=== PATIENT | female | born 1980 | race Caucasian/White ===

== ENCOUNTER → 2021-11-08 | Outpatient (CLI) | payer BC, MEDICAID, SELFPAY ==
[2021-11-07 14:01] LABS: Protein, Urine (Random) < 6.0 mg/dL (<11.9)
== END | disposition home or self-care (01) ==
LOC: LABSPEC 10:13
PROVIDERS: PCP Internal Medicine; Visit Provider Obstetrics & Gynecology
DX: O24.919 Unspecified diabetes mellitus in pregnancy, unspecified trimester (principal); Z3A.00 Weeks of gestation of pregnancy not specified
CPT/HCPCS: 82570; 84156

== ENCOUNTER → 2021-11-25 | Outpatient (CLI) | payer BC, MEDICAID, SELFPAY ==
[2021-11-25 14:04] LABS: NATERA MAILED SPECIMEN
[2021-11-25 15:21] LABS: Absolute Lymphocyte Count 2.61 X10^3/uL (0.83-4.51); Absolute Neutrophil Count 6.3 X10^3/uL (2.0-7.7); Basophil# 0.03 X10^3/uL; Basophil% 0.3 % (0-1); Hematocrit 40.4 % (37-47); Hemoglobin 13.5 g/dL (12.0-15.0); Lymphocyte # 2.61 X10^3/ul (0.83-4.51); Lymphocyte % 26.1 % (19-41); Mean Corp Hgb Conc 33.4 g/dL (32-36); Mean Corpuscular Hgb 30.3 pg (27.0-32.0); Mean Corpuscular Volume 90.8 fL (81-99); Mean Platelet Vol. 11.4 fl (6.2-12.0); Monocyte# 0.59 X10^3/uL; Monocyte% 5.9 % (0-10); NRBC Flagged by Analyzer 0 % (0-5); Neutrophil # 6.34 X10^3/uL (2.7-7.7); Neutrophil % 63.3 % (47-70); Platelet Count 226 K/mm3 (150-450); RBC Distribution Width CV 12.4 % (11.6-14.6); Red Blood Count 4.45 M/mm3 (4.2-5.4)
[2021-11-25 15:56] LABS: ALB/GLOB Ratio 0.8 RATIO (0.9-2.4); AST(SGOT) 12 U/L (15-37); Alanine Aminotransfer ALT/SGPT 21 U/L (13-56); Albumin, Serum 3.1 g/dL (3.2-5.0); Alkaline Phosphatase 38 U/L (45-117); Anion Gap 8 (5-15); BUN 15 mg/dL (7-18); BUN/Creat Ratio 24.8 RATIO (10-20); Calcium,Total 9.2 mg/dL (8.5-10.1); Chloride 106 mmol/L (98-107); Cholesterol 175 mg/dL (200); EST Glomerular Filtration Rate 115 mL/min (>60); Est Glom Filt Rate - Afr Amer 140 mL/min (>60); Globulin 3.9 g/dL (2.2-4.2); Glucose 80 mg/dL (74-106); High Density Lipoprotein 52 mg/dL; Potassium 3.6 mmol/L (3.5-5.1); Sodium Level 137 mmol/L (136-145); Triglycerides 114 mg/dL; Very Low Density Lipoprotein 23 mg/dL (5-40)
== END | disposition home or self-care (01) ==
PROVIDERS: PCP Internal Medicine; Referring Provider Obstetrics & Gynecology; Visit Provider Obstetrics & Gynecology
DX: Z34.81 Encounter for supervision of other normal pregnancy, first trimester (principal); Z31.430 Encounter of female for testing for genetic disease carrier status for procreative management
CPT/HCPCS: 36415; 80053; 80061; 83036; 85025

== ENCOUNTER → 2021-12-06 | Outpatient (CLI) | payer BC, MEDICAID, SELFPAY ==
[2021-12-06 11:22] LABS: Protein, Urine (Random) 17.7 mg/dL (<11.9); Protein:Creat Ratio 103 mg/g CRE (0-200)
[2021-12-06 11:55] LABS: T4 Free Direct 1.05 ng/dL (0.76-1.46); Thyroid Stim Hormone (TSH) 1.25 uIU/mL (0.358-3.74)
== END | disposition home or self-care (01) ==
PROVIDERS: PCP Internal Medicine; Visit Provider Obstetrics & Gynecology
DX: O24.319 Unspecified pre-existing diabetes mellitus in pregnancy, unspecified trimester (principal); O99.210 Obesity complicating pregnancy, unspecified trimester; Z13.29 Encounter for screening for other suspected endocrine disorder; Z3A.00 Weeks of gestation of pregnancy not specified
CPT/HCPCS: 36415; 82570; 84156; 84439; 84443

== ENCOUNTER 2022-01-02 11:42 | Outpatient (CLI) | payer BC, MEDICAID, SELFPAY ==
--- NOTE | 2022-01-02 11:45 | EKG12_ITS ---
Test Reason : Blood Pressure : / mmHG Vent. Rate : 063 BPM Atrial Rate : 063 BPM P-R Int : 124 ms QRS Dur : 070 ms QT Int : 398 ms P-R-T Axes : 039 015 006 degrees QTc Int : 407 ms Normal sinus rhythm Low voltage QRS Borderline ECG Confirmed by MARISA SKELTON, SOFI ([id number]), editor managing director NINO LACEY ([id number]) on 01/06/2022 11:17:32 AM Referred By: Sheryl Calvillo Confirmed By:CHEMO CUNNINGHAM MD
[2022-01-02 15:20] LABS: Hemoglobin A1c 4.7 % (3.8-5.6)
== END 2022-01-02 23:59 | disposition home or self-care (01) ==
PROVIDERS: PCP Internal Medicine; Referring Provider Obstetrics & Gynecology; Visit Provider Obstetrics & Gynecology
DX: O24.112 Pre-existing type 2 diabetes mellitus, in pregnancy, second trimester (principal); Z3A.00 Weeks of gestation of pregnancy not specified
CPT/HCPCS: 36415; 82105; 82677; 83036; 84702; 93005

== ENCOUNTER → 2022-01-16 | Outpatient (CLI) | payer BC, MEDICAID, SELFPAY | END | disposition home or self-care (01) | LOC: LABSPEC 16:23 | PROVIDERS: PCP Internal Medicine; Referring Provider Nurse Practitioner Women's Health; Visit Provider Nurse Practitioner Women's Health | DX: R30.9 Painful micturition, unspecified (principal) | CPT/HCPCS: 87077; 87086; 87088 ==

== ENCOUNTER → 2022-03-17 | Outpatient (CLI) | payer BC, MEDICAID, SELFPAY ==
[2022-03-17 14:20] LABS: Absolute Lymphocyte Count 1.33 X10^3/uL (0.83-4.51); Basophil# 0.04 X10^3/uL; Basophil% 0.4 % (0-1); Eosinophil# 0.21 X10^3/uL; Hematocrit 36.5 % (37-47); Hemoglobin 12.6 g/dL (12.0-15.0); Lymphocyte # 1.33 X10^3/ul (0.83-4.51); Lymphocyte % 12.7 % (19-41); Mean Corp Hgb Conc 34.5 g/dL (32-36); Mean Corpuscular Hgb 32.3 pg (27.0-32.0); Mean Corpuscular Volume 93.6 fL (81-99); Mean Platelet Vol. 10.8 fl (6.2-12.0); Monocyte# 0.79 X10^3/uL; Monocyte% 7.6 % (0-10); NRBC Flagged by Analyzer 0 % (0-5); Neutrophil # 7.97 X10^3/uL (2.7-7.7); Neutrophil % 76.2 % (47-70); Platelet Count 205 K/mm3 (150-450); RBC Distribution Width CV 13.2 % (11.6-14.6); RBC Distribution Width SD 44.9 fl (35.1-43.9); White Blood Count 10.5 K/mm3 (4.4-11.0)
== END | disposition home or self-care (01) ==
LOC: PAVLAB 14:07
PROVIDERS: PCP Internal Medicine; Referring Provider Obstetrics & Gynecology; Visit Provider Obstetrics & Gynecology
DX: O09.90 Supervision of high risk pregnancy, unspecified, unspecified trimester (principal)
CPT/HCPCS: 36415; 85025

== ENCOUNTER → 2022-03-27 | Outpatient (CLI) | payer BC, MEDICAID, SELFPAY ==
[2022-03-27 11:13] LABS: Protein, Urine (Random) 10.4 mg/dL (<11.9); Protein:Creat Ratio 211 mg/g CRE (0-200)
== END | disposition home or self-care (01) ==
LOC: LAB 09:48
PROVIDERS: PCP Internal Medicine; Referring Provider Nurse Practitioner; Visit Provider Nurse Practitioner
DX: O24.113 Pre-existing type 2 diabetes mellitus, in pregnancy, third trimester (principal); Z3A.00 Weeks of gestation of pregnancy not specified
CPT/HCPCS: 36415; 82570; 83036; 84156; 84443

== ENCOUNTER → 2022-04-04 | Outpatient (CLI) | payer BC, MEDICAID, SELFPAY | END | disposition home or self-care (01) | LOC: LABSPEC 16:15 | PROVIDERS: PCP Internal Medicine; Visit Provider Obstetrics & Gynecology | DX: Z34.90 Encounter for supervision of normal pregnancy, unspecified, unspecified trimester (principal) | CPT/HCPCS: 87086; 87088 ==

== ENCOUNTER → 2022-04-10 | Outpatient (CLI) | payer MEDICAID, SELFPAY ==
[2022-04-10 10:51] LABS: Absolute Neutrophil Count 7.9 X10^3/uL (2.0-7.7); Basophil# 0.03 X10^3/uL; Basophil% 0.3 % (0-1); Eosinophil# 0.27 X10^3/uL; Eosinophils% 2.5 % (0-5); Hematocrit 37.2 % (37-47); Hemoglobin 12.9 g/dL (12.0-15.0); Lymphocyte % 16.5 % (19-41); Mean Corp Hgb Conc 34.7 g/dL (32-36); Mean Corpuscular Hgb 31.8 pg (27.0-32.0); Mean Corpuscular Volume 91.6 fL (81-99); Mean Platelet Vol. 11.1 fl (6.2-12.0); Monocyte# 0.72 X10^3/uL; Monocyte% 6.6 % (0-10); NRBC Flagged by Analyzer 0 % (0-5); Neutrophil # 7.94 X10^3/uL (2.7-7.7); Neutrophil % 72.6 % (47-70); Platelet Count 193 K/mm3 (150-450); RBC Distribution Width CV 13.1 % (11.6-14.6); Red Blood Count 4.06 M/mm3 (4.2-5.4); White Blood Count 10.9 K/mm3 (4.4-11.0)
[2022-04-10 11:52] LABS: Amphetamine Urine VISTA NEGATIVE (<1000 ng/mL); Barbiturate Urine VISTA NEGATIVE (< 200 ng/mL); Benzodiazepine Urine VISTA NEGATIVE (< 200 ng/mL); Cocaine Urine VISTA NEGATIVE (< 300 ng/mL); Ecstacy Urine VISTA NEGATIVE (< 500 ng/mL); Methadone Urine VISTA NEGATIVE (< 300 ng/mL); PCP Urine VISTA NEGATIVE (< 25 ng/mL); THC Urine VISTA NEGATIVE (< 50 ng/mL); Vista UDS pH Range 6
[2022-04-10 11:59] LABS: HIV - WCH Non-Reactive (Nonreactive); Hepatitis B Surface Antigen Non-Reactive (Nonreactive); Hepatitis C Antibody Non-Reactive (Nonreactive); Rubella IgG Reactive (Nonreactive); Syphilis Antibodies Non-reactive
== END | disposition home or self-care (01) ==
LOC: LAB 10:23
PROVIDERS: Obstetrics & Gynecology; PCP Internal Medicine; Referring Provider Obstetrics & Gynecology; Visit Provider Obstetrics & Gynecology
DX: O23.40 Unspecified infection of urinary tract in pregnancy, unspecified trimester (principal); Z3A.00 Weeks of gestation of pregnancy not specified
CPT/HCPCS: 36415; 80307; 85025; 86703; 86762; 86780; 86803; 86850; 86900; 86901; 87086; 87088; 87186; 87340

== ENCOUNTER 2022-05-19 05:10 | Inpatient (IN) | payer BC, MEDICAID, SELFPAY ==
--- NOTE | 2022-05-17 | FALS_PTH ---
PATIENT: FRANCY LAZO LOC: WP U#:[id number] AGE/SX: 41/F ROOM: WP007 RE05/19/[address]: Dr. Sheryl Calvillo MD : 1980 BED: 1 DIS: 05/22/2022 SPEC #: [id number] RECD: 05/19/22 09:36 STATUS: DINO GUERRERO #: [id number] DEMETRA: 05/17/22 00:[address]: Sheryl Calvillo DEPT: SURGICAL PATHOLOGY RECD BY: Pradeep Parker ENTERED: 05/19/22 10:34 SP TYPE: FALL TUBES OTHR DR: Dr. Asaf Powers MD Tissues: Fallopian tube Procedures: Surgery Specimen Level II HEADER OPERATION: Tubal ligation PRE-OP DIAGNOSIS: Sterilization TISSUE SUBMITTED: Fallopian tubes, suture in right MICROSCOPIC DIAGNOSIS Bilateral fallopian tubes, salpingectomy: Bilateral fallopian tubes, no pathologic diagnosis. SJ:ivelisse 05/20/2022 MICROSCOPIC DESCRIPTION Slides are reviewed. GROSS DESCRIPTION Received in fixative is one container labeled with the patient's name and designated bilateral fallopian tubes, right with stitch. The specimen consists of bilateral fallopian tubes including fimbrial ends. The right fallopian tube measures 6 cm in length and 0.7 cm in diameter and the left fallopian tube measures 5 cm in length and 0.7 cm in diameter. Sections reveal unremarkable cut surfaces. Occupational Health Physiotherapist sections are submitted in two cassettes as follows: 1 ? right fallopian tube, 2 ? left fallopian tube. / ANA:ivelisse 05/19/2022 TC:4 CPT: 00701 x2
--- NOTE | 2022-05-18 14:32 | HP.PCM_ITS ---
History and Physical Intake Vital Signs ? 04/16/2209:51 05/15/2211:09 05/15/2211:10 Height 5 ft 9 in 5 ft 9 in 5 ft 9 in Weight: ? 353 lb ? BMI ? 52.1 ? BP ? 104/82 H ? Intake Visit Reasons:?37 WK OB Chief Complaint: est ob Ocular Care Technologist Required: No Is patient in pain?: No Allergies No Known Allergies Allergy (Verified 04/30/22 13:05) Medications metformin 500 mg tablet 500 mg PO DAILY 10/22/21 [History Confirmed 05/15/22] prenat.vits,carlie,qfl-eosd-erorf 1 tab PO DAILY 10/22/21 [History Confirmed 05/15/22] aspirin 81 mg tablet,delayed release (Adult Aspirin Regimen) 81 mg PO DAILY 01/02/22 [History Confirmed 05/15/22] folic acid 1 mg tablet 1 mg PO DAILY 02/13/22 [History Confirmed 05/15/22] metformin 1,000 mg tablet 1,500 mg PO DAILY 02/27/22 [History Confirmed 05/15/22] Last Menstrual Period: 09/03/21 Zika: Zika virus screening: Negative : No PFSH PFSH Medical History? Encounter to establish care with new doctor Polycystic bilateral ovaries Sleep apnea Type 2 diabetes mellitus Surgical History? [place] teeth extracted Family History? Mother Bipolar 1 disorder ADHD COPD (chronic obstructive pulmonary disease) Diabetes CAD (coronary artery disease) ?? ? CHF Alcoholism Angina at rest DepressionFather Unknown family medical historyAunt Cancer ?? ? cervical ?? ? Endometriosis Ovarian cancerBrother AlcoholismGrandfather Alcoholism Angina at rest Diabetes Heart disease CVA (cerebral vascular accident) Tillman's palsyUncle Tillman's palsy Social History? adopted:? No household members:? significant other current occupational status:? 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 No leisure activities:? exercise Smoking Status:? Never smoker alcohol intake:? never details:? not while substance use type:? does not use diet:? low carbohydrate what type of physical activity do you participate in:? walking frequency:? 1-2 times per week do you feel safe at home:? Yes additional social history:? BF Antonio Narvaez History ? ? ? 2 ? Elective abortions ? Hx Para ? ? ?A 0 ? Spontaneous abortions ? ? ? 1 Hx # Term Pregnancies ? Ectopic pregnancies ? Hx # Pregnancies ? Multiple births ? # of living children ? Past Pregnancies Del. Date Name GA/Weeks Outcome Route Bth Weight Gen Labor Lgth Anesthesia Del Locatn Provider FOB Unknown 2009 SAB ? spontaneous ? Delivery Date:?? Last Updated by: Destiny Dudley STORAGE BATTERY TESTER, STORAGE BATTERY TESTER-C ? ? ? No intervention. Had PPD and took zoloft X 6 mo HPI 37 WK OB Details: FRANCY LAZO is a 41 year old who presents for routine OB visit. OB Visit AMOS Calculator ? Estimated Delivery Date Method Current WG Current Estimate 06/02/22 Ultrasound #1 37w 5d Other Estimates 06/10/22 LMP (Certain) 36w 4d # 2 ? ? Expected Delivery Route/Plan LTCS and BS Labor Preferences- CB/BF classes: recommended labor support person: esme griffin aunt will be there too. labor intervention preferences: [] pain management options preferred: [] cut cord/dad catch: [] : yes PP control planned: [] discussed possible routes of delivery and associated risks: [] special requests: [] Specific Issue/Plans Covid status: vaccinated with booster Flu vaccine: rec'd Tdap vaccine: [] Rhogam: [] LARC form signed: [] Problem list reviewed and updated with the most current plan of care details and appropriate orders placed.? Relevant counseling for the gestational age provided. Continue routine care and follow up unless otherwise noted in visit notes/problem list details Initial Weight:?Not Recorded Date -?-?-?-?-?-?-?-?-?-?-?-?- EGA Weight BP Urine Prot -?-?-?-?-?-?-?-?-?-?-?-?- Glucose FHR FuHt Pres Dilation -?-?-?-?-?-?-?-?-?-?-?-?- Effaced St Visit Note 11/07/21-?-?-?-?-?-?-?-?-?-?-?-?- 10w 3d 287 lb 2 oz 110/78 -?-?-?-?-?-?-?-?-?-?-?-?- ? A 150 -?-?-?-?-?-?-?-?-?-?-?-?- B ? A -?-?-?-?-?-?-?-?-?-?-?-?- B -?-?-?-?-?-?-?-?-?-?--?-?- ? A -?-?-?-?-?-?-?-?-?-?-?-?- B A JV- di/di twins on scan measuring each 10 weeks 3d -?-?-?-?-?-?-?-?-?-?-?-?- B 12/06/21-?-?-?-?-?-?-?-?--?-?-?-?- 14w 4d 289 lb 8 oz 120/80 -?-?-?-?-?-?-?-?-?-?-?-?- ? A 160 -?-?-?-?-?-?-?-?-?-?-?-?- B 157 ? A -?-?-?-?--?-?-?-?-?-?-?-?- B -?-?-?-?-?-?-?-?-?-?-?-?- ? A -?-?-?-?-?-?-?-?-?-?-?-?- B A SM- no vb lof crmaping -?-?-?-?-?-?-?-?-?-?-?-?- B 01/02/22-?-?-?-?-?-?-?-?-?-?-?-?- 18w 3d 303 lb 8 oz 118/80 Negative -?-?-?-?-?-?-?-?-?-?-?-?- Negative A 155 -?-?-?-?-?-?-?-?-?-?-?-?- B 160 ? A -?-?-?-?-?-?-?-?-?-?-?-?- B -?-?-?-?-?-?-?-?-?-?-?-?- ? A -?-?-?-?-?-?-?-?-?-?-?-?- B A JV- afp and hga1c today. anatomy scan done and results pending from [facility]. glucose levels stable. -?-?-?-?-?-?-?-?-?-?-?-?- B 01/16/22-?-?-?-?-?-?-?-?-?-?-?-?- 20w 3d 306 lb 118/70 Negative -?-?-?-?-?-?-?-?-?-?-?-?- Negative A -?-?-?-?-?-?-?-?-?-?-?-?- B ? A -?-?-?-?-?-?-?-?-?-?-?-?- B -?-?-?-?-?-?-?-?-?-?-?-?- ? A -?-?-?-?-?--?-?-?-?-?-?-?- B A MH:no VB, CTX. Work in for dysuria and frequency.? Rx sent. Culture pending. -?-?-?-?-?-?-?-?-?-?-?-?- B 01/30/22-?-?-?-?-?-?-?-?-?-?-?-?- 22w 3d 313 lb 110/60 Negative -?-?-?-?-?-?-?-?-?-?-?-?- Negative A 180 -?-?-?-?-?-?-?-?-?-?-?-?- B 150 ? A -?-?-?-?-?-?-?-?-?-?-?-?- B -?-?-?-?-?-?-?-?-?-?-?-?- ? A -?-?-?-?-?-?-?-?-?-?-?-?- B A JV- growth ultrasound was done today and pending. no complaints. seeing endo for dm and has a glucose monitor implanted in arm. glucose levels are normal. -?-?-?-?-?-?-?-?-?-?-?-?- B 02/27/22-?-?-?-?-?-?-?-?-?-?-?-?- 26w 3d 321 lb 2 oz 107/67 Negative -?-?--?-?-?-?-?-?-?-?-?-?- Negative A 138 -?-?-?-?-?-?-?-?-?-?-?-?- B 137 ? A -?-?-?-?-?-?-?-?-?-?-?-?- B -?-?-?-?-?-?-?-?-?-?-?-?- ? A -?-?-?-?-?-?-?-?-?-?-?-?- B A JV- growth done again today and both babies are 2lbs 1oz. still on metformin, no insulin required. -?-?-?-?-?-?-?-?-?-?-?-?- B 03/17/22-?-?-?-?-?-?-?-?-?-?-?-?- 29w 0d 324 lb 8 oz 117/71 Negative -?-?-?-?-?-?-?-?-?-?-?-?- Negative A 154 -?-?-?-?-?-?-?-?-?-?-?-?- B 168 ? A -?-?-?-?-?-?-?-?-?-?-?-?- B -?-?-?-?-?-?-?-?-?-?-?-?- ? A -?-?-?-?-?-?-?-?-?-?-?-?- B A LC- good FM. no lof,vb,ctx.[employer] growth scan next . then q2 weeks. out of work in 4 days. glucose- increased to 2000mg metformin. endo following closely. -?-?-?-?-?-?-?-?-?-?-?-?- B 04/04/22-?-?-?-?-?-?-?-?-?-?-?-?- 31w 4d 332 lb 8 oz 118/76 -?-?-?-?-?-?-?-?-?-?-?-?- ? A 145 -?-?-?-?-?-?-?-?-?-?-?-?- B 140 ? A -?-?-?-?-?-?-?-?-?--?-?-?- B -?-?-?-?-?-?-?-?-?-?-?-?- ? A -?-?-?-?-?-?-?-?-?-?-?-?- B A SM- no vb lof good fm n oregular ctx carpal tunnel stable.? discussed twice weekly testing patient to see if MFM can do if not will need once a week at hospital.? discussed desires LTCS and BS will schedule, title 19 signed.? reviewed labor precautions SM- rest of NOB labs drawn- no vb lof good fm n oregular ctx carpal tunnel stable.? discussed twice weekly testing patient to see if MFM can do if not will need once a week at hospital.? discussed desires LTCS and BS will schedule, title 19 signed.? reviewed labor precautions -?-?-?-?-?-?-?-?-?-?-?-?- B 04/16/22-?-?-?-?-?-?-?-?-?-?-?-?- 33w 2d 329 lb 8 oz 125/80 Negative -?-?-?-?-?-?-?--?-?-?-?-?- Negative A 144 -?-?-?-?-?-?-?-?-?-?-?-?- B 147 ? A -?-?-?-?-?-?-?-?-?-?-?-?- B -?-?-?-?-?-?-?-?-?-?-?-?- ? A -?-?-?-?-?-?-?-?-?-?-?-?- B A JV- getting twice weekly bpps and seeing us once weekly. glucose levels are normal per Dr. Brand. -?-?-?-?-?-?-?-?-?-?-?-?- B 04/24/22-?-?-?-?-?-?-?-?-?-?-?-?- 34w 3d 340 lb 8 oz 119/75 Negative -?-?-?-?-?-?-?-?-?-?-?-?- Negative A 131 -?-?-?-?-?-?-?-?-?-?-?-?- B 157 ? A Transverse -?-?-?-?-?-?-?-?-?-?-?-?- B Breech -?-?-?-?-?-?-?-?-?-?-?-?- ? A -?-?-?-?-?-?-?-?-?-?-?-?- B A JV- bpp today 01/13 both twins. no discordance. continue twice weekly testing. some contractions that are not painful. section scheduled for 05/19 with LISSY. (thursday) -?-?-?-?-?-?-?-?-?-?-?-?- B 04/30/22-?-?-?-?-?-?-?-?-?-?-?--?- 35w 2d 346 lb 2 oz 115/69 Negative -?-?-?-?-?-?-?-?-?-?-?-?- Negative A 144 -?-?-?-?-?-?-?-?-?-?-?-?- B 165 ? A Cephalic -?-?-?-?-?-?-?-?-?-?-?-?- B Breech 0-?-?-?-?-?-?-?-?-?-?-?-?- ? A -?-?-?-?-?-?-?-?-?-?-?-?- B A JV- bpp saturday 01/13, today incidental bpp of both are 01/13 on bedside scan. pt feeling sharp vaginal pain. -?-?-?-?-?-?-?-?-?-?-?-?- B 05/15/22-?-?-?-?-?-?-?-?-?-?-?-?- 37w 3d 353 lb 104/82 Negative -?-?-?-?-?-?-?-?-?-?-?-?- Negative A 130 -?-?-?-?-?-?-?-?-?-?-?-?- B 135 ? A -?-?-?-?-?-?-?-?-?-?-?-?- B -?-?-?-?-?-?-?-?-?-?-?-?- ? A -?-?-?-?-?-?-?-?-?-?-?-?- B A SM- no vb lof good fm n oregualr ctx cs thursday -?-?-?-?-?-?-?-?-?-?-?-?- B ACOG First Trimester First Trimester: Desire for , Alcohol, Tobacco Cessation, Illicit/Recreational Drug/Substance Use, Intimate Partner Violence, Barriers to care, Unstable Housing, Communication Barriers, Environmental/Work Hazards, Anticipated Course of Care, Toxoplasmosis Precations, Use of Any medications, Sexual activity, Exercise, Dental Care, Sauna/Hot tub use, Seat Belt use, Childbirth classes/Hospital facilities, , Travel, Indications for Ultrasound and Screening for Aneuploidy Second Trimester Second Trimester: Signs and Symptoms of Labor, Selecting a care provider, Reproductive Life Planning & Contreception, Care Planning, Depression/Anxiety and Intimate Partner Violence; Discussed Tobacco Cessation Third Trimester Third Trimester: Pain Management Plans, Labor support person(s), Immediate Larc, Movement Monitoring, Signs and Symptoms of Preeclampsia and Education Diagnostics Diagnostics Diagnostics: ?? ? Blood Type O POSITIVE ?? ? Antibody Screen NEGATIVE ?? ? HIV 1&2 Antibody Non-Reactive? (Nonreactive) ?? ? Rubella IgG Antibody Reactive? (Nonreactive) ?? ? Hgb 12.9 g/dL (12.0-15.0) ?? ? Hct 37.2 % (37-47) Details: HIV: Urine Culture: Sequential Screen: NIPT Screen: ROS Const Reports system reviewed and no additional complaints, except as documented Card Reports system reviewed and no additional complaints, except as documented Resp Reports system reviewed and no additional complaints, except as documented GI Reports system reviewed and no additional complaints, except as documented and Reports nausea Reports system reviewed and no additional complaints, except as documented Musc Reports system reviewed and no additional complaints, except as documented Exam Const General: cooperative, healthy appearing, comfortable and anxious HENWA Head: normal to inspection Nose: external nose normal Face and sinus: normal facial exam Neck Neck: normal visual inspection, full ROM and no lymphadenopathy Thyroid: thyroid normal Chest Chest palpation & inspection: normal inspection of the chest Resp Effort & Inspection: normal respiratory effort GI Inspection: normal to inspection Palpation: soft and other (gravid uterus) Other: Cervical Exam: Extrem General: pedal edema Results POC Urinalysis 2 Dip? (Clinic) Office Urine Glucose Negative ? ? Last Edit by Lindy Espinoza on 05/15/22 11:13 Office Urine Protein Negative ? ? Last Edit by Lindy Espinoza on 05/15/22 11:13 Coding Level of Care Code Off vis,est,level 3 Diagnoses Carpal tunnel syndrome during ? O26.899; G56.00 Twin gestation in third trimester? O30.003 UTI in ? 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 G47.30 ? Z3A.37 ? ? ? Weeks of gestation: 37 weeks Supervision of high risk , antepartum? O09.90 History of depression? Z87.59; Z86.59 Genital herpes? A60.00 Obesity? E66.9 PCOS (polycystic ovarian syndrome)? E28.2 ADHD? F90.9 Assessment and Plan Assessment and Plan (1) Carpal tunnel syndrome during : ?Status:?Acute ?Comment: bilateral wrist braces for comfort (2) Twin gestation in third trimester: ?Status:?Acute ?Comment: di/di deliver 38, desires LTCS and BS, scheduled 05/19 @ 7:20 with SM (3) UTI in : ?Status:?Acute ?Comment: macrobid. Rpt culture done 04/04 (4) Modified White class B pregestational diabetes mellitus: ?Status:?Acute ?Comment: baseline labs, EKG ordered, endocrine managed. metformin., growth US every 4 wks, 2x BPP after 32 wks may get with MFM, if not once weekly with MFM once weekly with WC.02/27 growth nl, 03/27 growth 72% and 54%, 04/14 01/13 BPP (5) Sleep apnea: ?Status:?Acute ?Comment: CPAP (6) : ?Status:?Acute ?Qualifiers: ?Weeks of gestation:?37 weeks? Qualified Code(s):?Z3A.37 - 37 weeks gestation of ?Comment: neg. AFP, carrier neg. , NIPT low risk,1st trimester MFM US nl, follow up to anatomy , echocardiogram in 4 wks (7) Supervision of high risk , antepartum: ?Status:?Acute ?Comment: NOB labs drawn 04/04 AMOS 06/02/23 BF:Bisi) (8) History of depression: ?Status:?Acute ?Comment: after SAB, took zoloft X 6 mo (9) Genital herpes: ?Status:?Acute ?Comment: No outbreaks. Valtrex at 36 wk (10) Obesity: ?Status:?Acute ?Comment: encouraged healthy weight. (11) PCOS (polycystic ovarian syndrome): ?Status:?Acute ?Comment: metformin (12) ADHD: ?Status:?Acute ?Comment: stopped med with pos UPT ? ? ? Orders: Orders POC Urinalysis 2 Dip? (Clinic) 05/15/22 ? ? UPDATE- I have seen the patient and performed any clinically relevant updates to the history and physical exam. Sheryl Calvillo MD
[2022-05-19] VITALS (16 sets, daily range): BP systolic 97–121; BP diastolic 43–68; PULSE 65–72; RESP 16–18; TEMP 36.1–36.9; O2SAT 97–98; BMI 52.4
[2022-05-19] MEDS: Lactated Ringers 1,000 ML 999 ML IV (05:50)
[2022-05-19 06:01] LABS: Bedside Glucose 84 mg/dL (74-106)
[2022-05-19 06:04] LABS: Basophil# 0.04 X10^3/uL; Basophil% 0.4 % (0-1); Eosinophils% 2.7 % (0-5); Hematocrit 36.9 % (37-47); Hemoglobin 12.6 g/dL (12.0-15.0); Lymphocyte % 24.5 % (19-41); Mean Corp Hgb Conc 34.1 g/dL (32-36); Mean Corpuscular Hgb 31.3 pg (27.0-32.0); Mean Corpuscular Volume 91.8 fL (81-99); Mean Platelet Vol. 11.5 fl (6.2-12.0); Monocyte# 0.92 X10^3/uL; Monocyte% 8.3 % (0-10); NRBC Flagged by Analyzer 0 % (0-5); Neutrophil # 6.96 X10^3/uL (2.7-7.7); Neutrophil % 63.1 % (47-70); Platelet Count 217 K/mm3 (150-450); RBC Distribution Width CV 13.2 % (11.6-14.6); Red Blood Count 4.02 M/mm3 (4.2-5.4)
[2022-05-19] MEDS: Acetaminophen 500 MG Tablet 1000 MG PO ×4 (06:11→23:34)
[2022-05-19] MEDS: Sodium Citrate/Citric Acid 30 ML UDC PO (06:37)
[2022-05-19] MEDS: Lactated Ringers 1,000 ML 150 ML IV (06:51)
--- NOTE | 2022-05-19 07:16 | OP.PCM_ITS ---
Assessment & Plan (1) delivery delivered: COMMENT: twins LTCS BS SM Maternal Data Information AMOS Calculator Estimated Delivery Date Method Current WG Current Estimate 06/02/22 Ultrasound #1 38w 1d Other Estimates 06/10/22 LMP (Certain) 37w 0d # 2 Final AMOS Source: LMP Details Operative Information Date of Procedure: 05/19/22 Pre-Operative Diagnosis: twins malpresentation transverse Post-Operative Diagnosis: same Indications for : Desires elective sterilization, Malpresentation and Multiple Gestation Classification: Scheduled Procedure Type: low transverse Type of Anesthesia: Spinal Special Medications: none Antibiotic Given: Ancef 2 grams IV x1 Drain: Guidry to straight drain Estimated Blood Loss: 800 Fluids Replaced: crystalloid Findings Description of Procedure: Spinal anesthesia was placed without difficulty. Guidry catheter was placed. The patient was placed in the dorsal supine position with leftward tilt. Patient was prepped and draped in the normal sterile fashion. Pfannenstiel skin incision was made with the scalpel and carried through to the underlying layer of fascia with the scalpel. Fascia was nicked in the midline and the incision extended laterally. The rectus bellies were dissected off superiorly and inferiorly with out complication both sharply and bluntly. The peritoneum was entered digitally. The incision was stretched and a low transverse uterine incision was made with the scalpel. The infant's head was delivered atraumatically followed by the anterior and posterior shoulders without complication the rest of the infant delivered. second infant converted to vertex from transverse and the membranes ruptured and head delivered followed by anterior and posterior shoulders rest of the infant delivered and cord clamped and cut. The placenta was delivered spontaneously immediately following and was noted to be intact and have a three-vessel cord. The uterus was exteriorized cleared of all clots and debris, and the incision was closed in a single layer closure using #1 Monocryl. The ovaries and fallopian tubes were noted to be within normal limits. Patient had desired sterilization and was counseled preoperatively regarding irreversibility and permanency. Therefore bilateral fallopian tubes were elevated and transected across using a LigaSure device starting proximally to distally without complication the entire fallopian tubes were removed. The uterus was returned to the maternal abdomen and gutters were cleared of all clots and debris. The peritoneum was closed with 3-0 Monocryl in a running fashion. Gloves were changed prior to fascial closure. Fascia was closed with 0 PDS in a running fashion. Subcutaneous tissue was copiously irrigated and the skin was closed with 3-0 Monocryl in a subcuticular fashion. Mepilex dressing was applied without complication. Patient was taken to recovery in stable condition. Amniotic Membrane Rupture Type: Artificial Amniotic Fluid Description: Clear Placenta Disposition: [facility] Cord Vessel Description: 3 Vessels Cord Entanglement: None Delayed Cord Clamping: Yes Complications Risks of Surgery Discussed w/Patient: Bleeding, Infection, Need for Future C- Sections and Injury to surrounding structure(s) including bowel and bladder Vaginal Delivery Complication Complications: None Admit VTE Documentation VTE Present on Admission: No VTE Mechan Device Prophylaxis: SCD's Multi Select Codes Urinary/Genital Urinary/Genital CPT Codes: 35343 C/S+TL (bilateral salpingectomy) and 98603 delivery+PP Care(CHRISTIANO) (Twins)
--- NOTE | 2022-05-19 07:24 | DCINST_ITS ---
Discharge Instructions Diet Discharge Diet: No restrictions Activity Discharge Activity: Return to Normal Activity, May Drive (when pain free and off narcotic pain meds), May Shower and May Take a Tub Bath (in 4 weeks) May resume sexual activity in: 6 weeks Weight Bearing Status: Full weight bearing Lifting Restrictions: under 30 lbs for 6 weeks Dressing / Incision Call your doctor if your incision/area has: Continuous Slow Oozing, Sudden Increased Bleeding, Increased Pain/ Swelling, Increased Redness, Foul Smelling Discharge and - Call your doctor if you observe: Fever of 101 or Higher, Using more than 1 pad per hour, Shortness of breath, Chest pain and Uncontrolled pain Suture Line Care: Avoid Pulling/Pushing and Avoid Pinching/Bending Change Dressing in: 1 week (leave open to air after removed) Remove Dressing in: 1 week (if present) Cleanse incision/area with: Soap & Water and Keep Dressing Clean & Dry Follow Up Care Please Follow Up With: Sheryl Calvillo MD When: Call to make an appointment with your doctor for a postop visit in 2 and 6 weeks. Test Results: Test results from this visit will be discussed in further detail at your follow- up appointment, if applicable. Discharge Plan Admission Admit Date/Time: 05/19/22 05:10 Attending Provider: Sheryl Calvillo Primary Care Provider: Asaf Powers Discharge Orders/Prescriptions Prescriptions: New oxycodone-acetaminophen [Percocet] 5-325 mg tablet 1 tab PO Q6H PRN (Reason: pain) 7 Days Qty: 20 0RF naproxen [naproxen] 500 mg tablet 500 mg PO BID PRN PRN (Reason: Pain) Qty: 30 1RF Continued prenat.vits,carlie,tgg-hbwh-tlsfh Tablet 1 tab PO DAILY metformin 1,000 mg tablet 1,500 mg PO DAILY folic acid 1 mg tablet 1 mg PO DAILY Referrals / Follow Up: Asaf Powers MD [Primary Care Provider] - Disposition Disposition (needs filled in before D/C Order can be placed): Home, Self Care
[2022-05-19] MEDS: 0.9% Saline Lock 10 ML Syringe IV ×2 (09:04→21:57)
[2022-05-19] MEDS: Ketorolac 30 MG/ML Syringe IV ×3 (09:04→21:57)
[2022-05-19 09:37] LABS: Pathology Specimen OB SEE PATHOLOGY REPORT
[2022-05-19] MEDS: Oxytocin 15 Units/NS 250ml 15 UNITS/250 ML IV.SOLN 83 UNITS IV (09:45)
[2022-05-19 10:06] LABS: Bedside Glucose 79 mg/dL (74-106)
[2022-05-19] MEDS: oxyCODONE 5 MG Tablet PO ×3 (10:34→19:43)
[2022-05-19] MEDS: Senna/Docusate Sodium 1 Tablet PO (10:34)
[2022-05-19] MEDS: metFORMIN HCl 500 MG Tablet 1500 MG PO (11:34)
[2022-05-19 14:21] LABS: Bedside Glucose 71 mg/dL (74-106)
--- NOTE | 2022-05-19 18:32 | NURSING ---
This RN took over care at 1200 for this patient and received report from Melissa Cassidy.
[2022-05-19 18:35] LABS: Bedside Glucose 86 mg/dL (74-106)
[2022-05-19] MEDS: Enoxaparin 40 MG/0.4 ML Syringe SC (21:57)
[2022-05-19 22:26] LABS: Bedside Glucose 75 mg/dL (74-106)
[2022-05-20] MEDS: Ketorolac 30 MG/ML Syringe IV (02:57)
[2022-05-20] MEDS: 0.9% Saline Lock 10 ML Syringe IV (02:58)
[2022-05-20 03:31] VITALS: BP 122/65; PULSE 71; RESP 16; TEMP 36.3
[2022-05-20 05:58] LABS: Hematocrit 32.8 % (37-47); Hemoglobin 10.9 g/dL (12.0-15.0); Mean Corp Hgb Conc 33.2 g/dL (32-36); Mean Corpuscular Volume 93.2 fL (81-99); Mean Platelet Vol. 11.5 fl (6.2-12.0); Platelet Count 170 K/mm3 (150-450); RBC Distribution Width CV 13.5 % (11.6-14.6); RBC Distribution Width SD 45.5 fl (35.1-43.9); Red Blood Count 3.52 M/mm3 (4.2-5.4); White Blood Count 11.6 K/mm3 (4.4-11.0)
[2022-05-20] MEDS: Acetaminophen 500 MG Tablet 1000 MG PO ×3 (06:59→17:54)
[2022-05-20 07:45] VITALS: BP 129/67; PULSE 87; RESP 16; TEMP 36.5
[2022-05-20] MEDS: metFORMIN HCl 500 MG Tablet 1500 MG PO (08:25)
[2022-05-20 09:25] LABS: Bedside Glucose 84 mg/dL (74-106)
[2022-05-20] MEDS: Naproxen 250 MG Tablet 500 MG PO ×2 (10:22→17:55)
[2022-05-20] MEDS: Enoxaparin 40 MG/0.4 ML Syringe SC ×2 (10:23→22:11)
[2022-05-20] MEDS: Senna/Docusate Sodium 1 Tablet PO (10:23)
[2022-05-20] MEDS: Bisacodyl 10 MG Suppository RC (11:49)
[2022-05-20 13:49] VITALS: BP 129/77; PULSE 80; RESP 18; TEMP 36.8
--- NOTE | 2022-05-20 14:42 | PCM.PN.OB ---
Subjective Subjective Patient doing well without complaints. Tolerating PO. Ambulating and voiding without difficulty. feeding well. Denies chest pain, shortness of breath, calf pain/swelling, fevers, chills, lightheadedness. Objective Data Objective Data Vital Signs: Vital Signs Temp Pulse Resp BP Pulse Ox O2 Del Method 98.2 F 80 18 129/77 H 98 Room Air 05/20/22 13:49 05/20/22 13:49 05/20/22 13:49 05/20/22 13:49 05/19/22 23:17 05/20/22 03:31 Oxygen Delivery Method Room Air Weight: 161.195 kg Body Mass Index (BMI) 52.4 Intake & Output: Intake and Output for Last 24 Hours 05/18/22 05/19/22 05/20/22 23:59 23:59 23:59 Intake Total 2837.5 / 2837.5 Output Total 3400 / 3400 400 / 400 Balance -562.5 / -562.5 -400 / -400 Lab / Micro Data Result Diagrams: 05/20/22 05:45 Labs: Laboratory Results - last 24 hr 05/19/22 18:15: POC Glucose 86 05/19/22 21:55: POC Glucose 75 05/20/22 05:45: WBC 11.6 H, RBC 3.52 L, Hgb 10.9 L, Hct 32.8 L, MCV 93.2, MCH 31.0, MCHC 33.2, RDW Std Deviation 45.5 H, RDW Coeff of Bernie 13.5, Plt Count 170, MPV 11.5 05/20/22 08:23: POC Glucose 84 ROS Constitutional Constitutional: Reports systems reviewed and no addt'l complaints, except as documented Cardiovascular Cardiovascular: Reports systems reviewed and no addt'l complaints, except as documented Respiratory/Chest Respiratory/Chest: Reports systems reviewed and no addt'l complaints, except as documented Gastrointestinal Gastrointestinal: Reports systems reviewed and no addt'l complaints, except as documented Physical Exam Const alert, oriented x3 and no apparent distress HEENT Head and Scalp: atraumatic Resp normal respiratory effort GI soft to palpation and non-tender Inspection: incision intact, healing well and drainage (none) Bimanual Exam - Vag & Uterus: uterus non-tender Uterus Palpation: uterus fundus firm (below Umbilicus) Assessment & Plan (1) delivery delivered: COMMENT: twins LTCS BS SM (2) PCOS (polycystic ovarian syndrome): COMMENT: metformin (3) Obesity: COMMENT: encouraged healthy weight. (4) Modified White class B pregestational diabetes mellitus: COMMENT: baseline labs, EKG ordered, endocrine managed. metformin., growth US every 4 wks, 2x BPP after 32 wks may get with MFM, if not once weekly with MFM once weekly with [facility].02/27 growth nl, 03/27 growth 72% and 54%, 04/14 01/13 BPP PLAN: Plan s/p LTCS PPD # 1 1. routine post care 2. breast feeding- support given 3. rh positive 4. rubella immune
[2022-05-20] MEDS: oxyCODONE 5 MG Tablet PO ×2 (16:27→22:12)
[2022-05-20 18:32] LABS: Bedside Glucose 84 mg/dL (74-106)
[2022-05-20 20:30] VITALS: BP 124/59; PULSE 79; RESP 18; TEMP 36.7; O2SAT 97
[2022-05-21 00:26] LABS: Bedside Glucose 84 mg/dL (74-106)
[2022-05-21] MEDS: Acetaminophen 500 MG Tablet 1000 MG PO ×4 (00:29→20:10)
[2022-05-21 02:38] VITALS: BP 123/63; PULSE 76; RESP 18; TEMP 36.3; O2SAT 98
[2022-05-21] MEDS: Naproxen 500 MG Tablet PO ×3 (05:14→20:11)
[2022-05-21 07:10] LABS: Bedside Glucose 94 mg/dL (74-106)
[2022-05-21] MEDS: oxyCODONE 5 MG Tablet PO ×3 (09:05→22:43)
--- NOTE | 2022-05-21 09:08 | PCM.PN.OB ---
Subjective Subjective Patient doing well without complaints. Tolerating PO. pain managed with PO medications. Ambulating and voiding without difficulty. Feeding well. pumping. Denies chest pain, shortness of breath, calf pain/swelling, fevers, chills, lightheadedness. Objective Data Objective Data Vital Signs: Vital Signs Temp Pulse Resp BP Pulse Ox O2 Del Method 97.4 F L 76 18 123/63 H 98 Room Air 05/21/22 02:38 05/21/22 02:38 05/21/22 02:38 05/21/22 02:38 05/21/22 02:38 05/21/22 02:38 Oxygen Delivery Method Room Air Weight: 355 lb 6 oz Body Mass Index (BMI) 52.4 Intake & Output: Intake and Output for Last 24 Hours 05/19/22 05/20/22 05/21/22 23:59 23:59 23:59 Intake Total 2837.5 / 2837.5 Output Total 3400 / 3400 400 / 400 Balance -562.5 / -562.5 -400 / -400 Lab / Micro Data Attestation: I reviewed the patient's lab results. Result Diagrams: 05/20/22 05:45 Labs: Laboratory Results - last 24 hr 05/20/22 08:23: POC Glucose 84 05/20/22 18:03: POC Glucose 84 05/20/22 23:11: POC Glucose 84 05/21/22 06:40: POC Glucose 94 ROS Constitutional Constitutional: Reports as per HPI ENT HEENT: Reports none Cardiovascular Cardiovascular: Reports none Respiratory/Chest Respiratory/Chest: Reports none Gastrointestinal Gastrointestinal: Reports none Genitourinary Genitourinary: Reports none Musculoskeletal Musculoskeletal: Reports none Integumentary Integumentary: Reports none Neurologic Neurologic: Reports none Psychiatric Psychiatric: Reports none Endocrine Endocrinology: Reports none Physical Exam Const alert, oriented x3 and no apparent distress HEENT normocephalic Eyes PERRL Neck full ROM Chest inspection of chest normal Resp normal respiratory effort, normal air movement, no retractions and no use of accessory muscles Effort and Inspection: able to speak in complete sentences and symmetric chest movement GI soft to palpation GI Narrative: fundus firm at u. no clots. normal lochia rubra. Skin no rashes or lesions noted Skin Narrative: mepliex dressing clean/dry and intact. Neuro oriented x3 Assessment & Plan (1) delivery delivered: COMMENT: twins LTCS BS SM PLAN: s/p LTCS PPD # 2 1. routine post care 2. breast feeding- support given 3. rh positive 4. rubella immune 5. desires d/c home today
[2022-05-21 09:40] VITALS: BP 118/66; PULSE 75; RESP 18; TEMP 36.7; O2SAT 98
[2022-05-21] MEDS: Enoxaparin 40 MG/0.4 ML Syringe SC ×2 (09:55→21:53)
[2022-05-21] MEDS: metFORMIN HCl 500 MG Tablet 1500 MG PO (09:55)
--- NOTE | 2022-05-21 12:18 | CASEMGMT ---
Social Work Assessment Labor and Delivery Unit Date of Referral: 05/19/2022 Time of Referral: 14:17 Referred By: Dr. Sheryl Calvillo Date of Intervention: 05/21/2022 Time of Intervention: 12:18 Reason for Referral: Mother of baby (MOB) with history of mental health. History obtained from: MOB, medical chart, nursing staff. Household composition: MOB, Father of baby (FOB) and now these two infants, Ceasar Narvaez and Sherly Narvaez have a private home together. Patient's parent/guardian status: MOB and FOB, Antonio Narvaez have been together for a year. MOB reports to be and with prior relationship was not able to get . MOB reports to have had an loose early in in 2009. MOB reports that was not planned but accepted. MOB states that Antonio has two other children from a prior relationship that are ages 14 and 16. MOB reports that Antonio is supportive and involved in infants care. MOB reports to feel safe with Antonio. Antonio's two other children live with their biological mother. Medical History: MOB with scheduled on 05/19/2022 and delivery of two infants. MOB deliver male, Ceasar Narvaez and female, Sherly Thorpe via on 05/19/2022 as planned. MOB with appropriate care. Infants to follow up with Dr. Forrest in the community. MOB plans to breastfeed infants but has been having difficulty with milk supply. MOB reports to have been working with account consultant. Educational Status: Denies concerns with comprehension or understanding. Financial Status: MOB reports to have stopped working to be able to stay home with infants. MOB reports that Antonio works full-time and is able to financially provided for MOB and infants. Infant Supplies: MOB reports to have needed infant supplies in the home including two car seats and two cribs. Childcare/Caregiver(s): MOB plans to be primary caregiver for infants. MOB reports that FOB will be off work for two weeks. MOB reports that MOB's aunt is also staying with MOB/FOB and infants to assist with infants care. Transportation: Denies concerns. Programs/Agencies Involved: MOB plans to utilize WIC as needed. MOB active with counseling services through [facility] and is on waiting list at [facility] in [place]. Children Services/Legal Issues: Denies Mental Health History: MOB reports depression after loss of in 2009. MOB denies suicidal thoughts, plans, intents at that time or any other time. MOB reports to have started counseling to help manage patient mental health and this works well. This social media designer able to facilitate conversation with MOB about signs and symptoms of depression. MOB reports to have support from family/friends and to plans to reach out to support system as needed. MOB plans to continue with counseling services. Substance Use History: MOB Denies. Maternal and Drug Screens: No positive test results noted. PHQ9: Did not trigger Family/Social Stressors: MOB denies current stressors outside of adjusting to live with twins and you know I am old. This social media designer able to facilitate conversation with MOB about possible changes to expect and adjustments to life, MOB open to speaking with this social media designer. Support Systems: MOB reports to have support from FOB, family, and friends. Depression and Anxiety/Shaken Baby/Safe Sleeping: This social media designer provided MOB with information on depression/anxiety, safe sleeping, [facility], shaken baby, and counseling resources. MOB responding appropriately to prompts for safe sleeping and shaken baby. ASSESSMENT: This social media designer met with MOB in room. Introduced self and social media designer role. MOB agreeable to speak with this social media designer. Infants currently in nursery going through car seat testing and hearing test. FOB not present in room. MOB with appropriate and engaged affect. MOB reports to have needed support in the community. MOB reports to feel a connection with infants and to be happy to finally have children as MOB thought MOB could not have children. Active support and listening provided. PLAN: Infant to discharge to home with MOB and FOB. No other services requested or indicated. John GAVIRIA, ISAIAS
[2022-05-21 13:10] VITALS: BP 143/77; PULSE 70; RESP 18; TEMP 36.3; O2SAT 98
--- NOTE | 2022-05-21 15:48 | NURSING ---
This RN called office and left message with office nurse. pt type 2 diabetic, managed on Metformin and blood glucose checks are ordered for [facility]. pt had fasting this AM and was 94 but a reading was not obtained prior to lunch. discussion if preference was for this RN to obtain blood glucose reading now or wait prior to dinner check. pt is also not being discharged today due to Baby B failing car seat challenge and repeat will need to be completed after 12 hours from initial testing, making repeat time 0000 tonight. pt verbalized to this RN that she would like to be discharged if Baby B passes car seat challenge even if in the middle of the night. information to be relayed to Dr. Benjamin and update for plan of care regarding blood glucose and discharge plans.
[2022-05-21 18:51] LABS: Bedside Glucose 84 mg/dL (74-106)
[2022-05-21 20:06] VITALS: BP 127/67; PULSE 72; RESP 16; TEMP 36.3; O2SAT 97
[2022-05-21 22:21] LABS: Bedside Glucose 96 mg/dL (74-106)
[2022-05-22] MEDS: Acetaminophen 500 MG Tablet 1000 MG PO ×2 (02:30→07:40)
[2022-05-22 02:31] VITALS: BP 116/63; PULSE 64; RESP 14; TEMP 36.4
[2022-05-22 04:15] VITALS: BP 114/62; PULSE 70; RESP 14; TEMP 36.6; O2SAT 98
[2022-05-22] MEDS: Naproxen 500 MG Tablet PO (04:19)
[2022-05-22 05:51] LABS: Bedside Glucose 97 mg/dL (74-106)
--- NOTE | 2022-05-22 07:23 | PCM.PN.OB ---
Subjective Subjective Patient doing well without complaints. Tolerating PO. Ambulating and voiding without difficulty. feeding well. Denies chest pain, shortness of breath, calf pain/swelling, fevers, chills, lightheadedness. Objective Data Objective Data Vital Signs: Vital Signs Temp Pulse Resp BP Pulse Ox O2 Del Method 97.8 F 70 14 114/62 98 Room Air 05/22/22 04:15 05/22/22 04:15 05/22/22 04:15 05/22/22 04:15 05/22/22 04:15 05/22/22 04:15 Oxygen Delivery Method Room Air Weight: 161.195 kg Body Mass Index (BMI) 52.4 Intake & Output: Intake and Output for Last 24 Hours 05/20/22 05/21/22 05/22/22 23:59 23:59 23:59 Output Total 400 / 400 Balance -400 / -400 Lab / Micro Data Result Diagrams: 05/20/22 05:45 Labs: Laboratory Results - last 24 hr 05/21/22 17:52: POC Glucose 84 05/21/22 21:58: POC Glucose 96 05/22/22 05:28: POC Glucose 97 ROS Constitutional Constitutional: Reports systems reviewed and no addt'l complaints, except as documented Cardiovascular Cardiovascular: Reports systems reviewed and no addt'l complaints, except as documented Respiratory/Chest Respiratory/Chest: Reports systems reviewed and no addt'l complaints, except as documented Gastrointestinal Gastrointestinal: Reports systems reviewed and no addt'l complaints, except as documented Physical Exam Const alert, oriented x3 and no apparent distress HEENT Head and Scalp: atraumatic Resp normal respiratory effort GI soft to palpation and non-tender Inspection: incision intact, healing well and drainage (none) Bimanual Exam - Vag & Uterus: uterus non-tender Uterus Palpation: uterus fundus firm (below Umbilicus) Assessment & Plan (1) delivery delivered: COMMENT: twins LTCS BS SM PLAN: Plan s/p LTCS PPD # 3 1. routine post care 2. breast feeding- support given 3. rh positive 4. rubella immune
--- NOTE | 2022-05-22 07:24 | PCM.DC.SUM ---
Providers Date of Admission: 05/19/22 Primary Care Physician: Dr. Asaf Powers MD Reason For Visit: PRIMARY C/S Diagnosis Discharge Diagnosis (1) delivery delivered: Status: Acute Code(s): O82 - Encounter for delivery without indication Plan s/p LTCS PPD # 3 1. routine post care 2. breast feeding- support given 3. rh positive 4. rubella immune Medications at Discharge Home Medications prenat.vits,carlie,rmy-oapp-cjhaw 1 tab PO DAILY 10/22/21 folic acid 1 mg tablet 1 mg PO DAILY 02/13/22 metformin 1,000 mg tablet 1,500 mg PO DAILY Check with primary doctor 02/27/22 naproxen 500 mg tablet 500 mg PO BID PRN PRN Pain #30 tabs 05/19/22 oxycodone-acetaminophen 5 mg-325 mg tablet (Percocet) 1 tab PO Q6H PRN pain 7 days #20 tabs 05/19/22 Hospital Course Summary of Care Provided Hospital Course: patient presented for LTCS and had an uncomplicated delivery. Postoperatively patient had return of bowel and bladder function and was ambulating well, tolerating adequate p.o., and was stable for discharge to home on postop day #3. Discharge medications naproxen and Percocet. Follow-up in office in 2 weeks for incision check in 6 weeks for visit. Routine post section diet and activity instructions. Weight / BMI Weight Weight: 161.195 kg Body Mass Index (BMI) 52.4 ABG / Lab / Microbiology Data Result Diagrams: 05/20/22 05:45 Laboratory: Laboratory Results - last 24 hr 05/21/22 17:52: POC Glucose 84 05/21/22 21:58: POC Glucose 96 05/22/22 05:28: POC Glucose 97 D/C Instructions Discharge Diet: No restrictions Discharge Activity: May Not Drive (for 2 weeks or while taking narcotic pain medications.), May Shower and May Take a Tub Bath (in 7 days) May shower in (days): 0 May resume sexual activity in: 6 weeks Weight Bearing Status: Full weight bearing Call your doctor if your incision/area has: Continuous Slow Oozing, Sudden Increased Bleeding, Increased Pain/ Swelling, Increased Redness, Foul Smelling Discharge and - Call your doctor if you observe: Fever of 101 or Higher, Using more than 1 pad per hour, Shortness of breath, Chest pain and Uncontrolled pain Suture Line Care: Avoid Pulling/Pushing and Avoid Pinching/Bending Cleanse incision/area with: Soap & Water and Keep Dressing Clean & Dry Please Follow Up With: Sheryl Calvillo MD When: Call to make an appointment with your doctor for a postop visit in 2 and 6 weeks. Meaningful Use Info Meaningful Use Diagnoses (Choose all that apply): None applicable Discharge Plan Admission Admit Date/Time: 05/19/22 05:10 Attending Provider: Sheryl Calvillo Primary Care Provider: Asaf Powers Instructions Forms: Information Patient Instructions: After a Discharge Orders/Prescriptions Prescriptions: New oxycodone-acetaminophen [Percocet] 5-325 mg tablet 1 tab PO Q6H PRN (Reason: pain) 7 Days Qty: 20 0RF naproxen [naproxen] 500 mg tablet 500 mg PO BID PRN PRN (Reason: Pain) Qty: 30 1RF Continued prenat.vits,carlie,rpx-jhyh-lsnqn Tablet 1 tab PO DAILY metformin 1,000 mg tablet 1,500 mg PO DAILY folic acid 1 mg tablet 1 mg PO DAILY Referrals / Follow Up: Asaf Powers MD [Primary Care Provider] - Disposition Disposition (needs filled in before D/C Order can be placed): Home, Self Care
[2022-05-22] MEDS: metFORMIN HCl 500 MG Tablet 1500 MG PO (07:58)
--- NOTE | 2022-05-22 08:00 | NURSING ---
pt c/o a headache that goes away when she lays down and comes back when she sits up- Dr Calvillo notified and message left for Dr Lawrence to call the unit- pt medicated with Tylenol and given caffeine to drink per Dr Calvillo request
[2022-05-22 09:03] VITALS: PULSE 82; RESP 18; TEMP 36.5
[2022-05-22 09:20] VITALS: BP 130/49; O2SAT 98
[2022-05-22] MEDS: Enoxaparin 40 MG/0.4 ML Syringe SC (09:52)
--- NOTE | 2022-05-22 10:14 | NURSING ---
dr cueva into see pt and evaluate for spinal headache
== END 2022-05-22 10:55 | disposition home or self-care (01) | DRG 783 ==
PROVIDERS: Admitting Provider Obstetrics & Gynecology; PCP Internal Medicine; Visit Provider Obstetrics & Gynecology
PROC: 10D00Z1 Extraction of Products of Conception, Low, Open Approach (ICD-10-PCS; CPT 59514; principal; 2022-05-19 06:55)
DX: O30.043 Twin pregnancy, dichorionic/diamniotic, third trimester (principal); O24.12 Pre-existing type 2 diabetes mellitus, in childbirth; E28.2 Polycystic ovarian syndrome; G47.30 Sleep apnea, unspecified; O99.214 Obesity complicating childbirth; Z37.2 Twins, both liveborn; O32.8XX2 Maternal care for other malpresentation of fetus, fetus 2; E66.9 Obesity, unspecified; O99.284 Endocrine, nutritional and metabolic diseases complicating childbirth; O99.344 Other mental disorders complicating childbirth; F90.9 Attention-deficit hyperactivity disorder, unspecified type; Z3A.37 37 weeks gestation of pregnancy; Z79.82 Long term (current) use of aspirin; Z79.84 Long term (current) use of oral hypoglycemic drugs; Z79.899 Other long term (current) drug therapy
CPT/HCPCS: 59050; 82962; 85025; 85027; 86850; 86900; 86901; 88302; 99218; J7120; A4216; G0378; J2405

== ENCOUNTER → 2022-07-31 | Outpatient (CLI) | payer MEDICAID, SELFPAY ==
[2022-07-31 17:22] LABS: ALB/GLOB Ratio 0.9 RATIO (0.9-2.4); AST(SGOT) 26 U/L (15-37); Alanine Aminotransfer ALT/SGPT 34 U/L (13-56); Albumin, Serum 3.6 g/dL (3.2-5.0); Alkaline Phosphatase 55 U/L (45-117); Anion Gap 7 (5-15); BUN 17 mg/dL (7-18); Calcium,Total 9.8 mg/dL (8.5-10.1); Chloride 109 mmol/L (98-107); Creatinine, Serum 0.85 mg/dL (0.55-1.02); EST Glomerular Filtration Rate 78 mL/min (>60); Est Glom Filt Rate - Afr Amer 94 mL/min (>60); Globulin 4.1 g/dL (2.2-4.2); Glucose 117 mg/dL (74-106); Potassium 3.7 mmol/L (3.5-5.1); Protein, Total 7.7 g/dL (6.4-8.2); Sodium Level 141 mmol/L (136-145)
[2022-07-31 17:26] LABS: Absolute Lymphocyte Count 2.54 X10^3/uL (0.83-4.51); Absolute Neutrophil Count 4.5 X10^3/uL (2.0-7.7); Basophil# 0.05 X10^3/uL; Basophil% 0.6 % (0-1); Eosinophil# 0.37 X10^3/uL; Eosinophils% 4.6 % (0-5); Hematocrit 43.8 % (37-47); Hemoglobin 13.8 g/dL (12.0-15.0); Lymphocyte # 2.54 X10^3/ul (0.83-4.51); Lymphocyte % 31.4 % (19-41); Mean Corp Hgb Conc 31.5 g/dL (32-36); Mean Corpuscular Hgb 28.2 pg (27.0-32.0); Mean Corpuscular Volume 89.6 fL (81-99); Mean Platelet Vol. 11.9 fl (6.2-12.0); Monocyte# 0.64 X10^3/uL; Monocyte% 7.9 % (0-10); NRBC Flagged by Analyzer 0 % (0-5); Neutrophil # 4.46 X10^3/uL (2.7-7.7); Platelet Count 284 K/mm3 (150-450); RBC Distribution Width SD 42.5 fl (35.1-43.9); Red Blood Count 4.89 M/mm3 (4.2-5.4); White Blood Count 8.1 K/mm3 (4.4-11.0)
== END | disposition home or self-care (01) ==
LOC: BIMLAB 15:58
PROVIDERS: PCP Internal Medicine; Referring Provider Internal Medicine; Visit Provider Internal Medicine
DX: G47.33 Obstructive sleep apnea (adult) (pediatric) (principal)
CPT/HCPCS: 36415; 80053; 85025

== ENCOUNTER → 2022-08-05 | Outpatient (CLI) | payer MEDICAID, SELFPAY ==
--- NOTE | 2022-08-05 14:42 | BI_ITS ---
MAMMOGRAPHY - BILATERAL SCREENING REASON FOR EXAM: Female, 41 years old. Routine annual screening examination. PERTINENT HISTORY: Non-contributory. TECHNIQUE: Digital bilateral breast tato (3D mammographic acquisition) in the CC and MLO projections. 2-D mediolateral oblique (MLO) and craniocaudad (CC) views of both breasts were obtained. CAD: Full Field Digital Mammography with Computer Added Detection was performed. COMPARISON: Comparison is made with prior outside examination of 02/20/2021. FINDINGS: Breast Composition: The breasts are heterogeneously dense, which may obscure small masses. There are no dominant masses or suspicious calcifications. Stable small benign-appearing bilateral axillary lymph nodes. No other significant abnormalities are identified. There has been no significant change since the prior study. BI/SCRN MAMM (CAD)W/TATO BILAT IMPRESSION: Stable bilateral screening mammogram. Yearly follow-up mammogram recommended. (A) ASSESSMENT CATEGORY: BIRADS Category 2: Benign. A letter regarding these results will be sent to the patient by the facility within 30 days. Approximately 10% of breast cancers are not detected by mammography. A normal mammogram should not delay biopsy of a clinically suspicious abnormality. [id number] Electronically Signed: Aditya Vicente MD at 11:27 EST ,
== END | disposition home or self-care (01) ==
LOC: OPBI 14:40
PROVIDERS: PCP Internal Medicine; Referring Provider Obstetrics & Gynecology; Visit Provider Obstetrics & Gynecology
DX: Z12.31 Encounter for screening mammogram for malignant neoplasm of breast (principal)
CPT/HCPCS: 77063; 77067

== ENCOUNTER → 2023-06-24 | Outpatient (CLI) | payer MEDICAID, SELFPAY ==
[2023-06-24 15:19] LABS: Absolute Lymphocyte Count 2.45 X10^3/uL (0.83-4.51); Absolute Neutrophil Count 5.8 X10^3/uL (2.0-7.7); Basophil# 0.05 X10^3/uL; Basophil% 0.5 % (0-1); Eosinophil# 0.43 X10^3/uL; Eosinophils% 4.6 % (0-5); Hematocrit 42.1 % (37-47); Hemoglobin 13.8 g/dL (12.0-15.0); Lymphocyte # 2.45 X10^3/ul (0.83-4.51); Lymphocyte % 26.4 % (19-41); Mean Corp Hgb Conc 32.8 g/dL (32-36); Mean Corpuscular Hgb 28.8 pg (27.0-32.0); Mean Corpuscular Volume 87.7 fL (81-99); Mean Platelet Vol. 11.6 fl (6.2-12.0); Monocyte# 0.54 X10^3/uL; Monocyte% 5.8 % (0-10); NRBC Flagged by Analyzer 0 % (0-5); Neutrophil # 5.77 X10^3/uL (2.7-7.7); Neutrophil % 62.3 % (47-70); Platelet Count 258 K/mm3 (150-450); RBC Distribution Width CV 12.8 % (11.6-14.6); RBC Distribution Width SD 41.5 fl (35.1-43.9); White Blood Count 9.3 K/mm3 (4.4-11.0)
[2023-06-24 16:23] LABS: ALB/GLOB Ratio 0.9 RATIO (0.9-2.4); AST(SGOT) 18 U/L (15-37); Alanine Aminotransfer ALT/SGPT 19 U/L (13-56); Albumin, Serum 3.6 g/dL (3.2-5.0); Alkaline Phosphatase 52 U/L (45-117); Anion Gap 5 (5-15); BUN 21 mg/dL (7-18); BUN/Creat Ratio 24.2 RATIO (10-20); Calcium,Total 9.3 mg/dL (8.5-10.1); Chloride 108 mmol/L (98-107); Cholesterol 212 mg/dL (200); Creatinine, Serum 0.87 mg/dL (0.55-1.02); EST Glomerular Filtration Rate 76 mL/min (>60); Est Glom Filt Rate - Afr Amer 92 mL/min (>60); Glucose 94 mg/dL (74-106); High Density Lipoprotein 46 mg/dL; Protein, Total 7.6 g/dL (6.4-8.2); Sodium Level 140 mmol/L (136-145); Triglycerides 179 mg/dL; Very Low Density Lipoprotein 36 mg/dL (5-40)
== END | disposition home or self-care (01) ==
LOC: BIMLAB 14:01
PROVIDERS: PCP Internal Medicine; Visit Provider Internal Medicine
DX: E11.9 Type 2 diabetes mellitus without complications (principal)
CPT/HCPCS: 36415; 80053; 80061; 85025

== ENCOUNTER → 2023-08-26 | Outpatient (CLI) | payer MEDICAID, SELFPAY ==
--- NOTE | 2023-08-26 10:22 | BI_ITS ---
MAMMOGRAPHY - BILATERAL SCREENING REASON FOR EXAM: Female, 42 years old. Routine annual screening examination. PERTINENT HISTORY: Non-contributory. TECHNIQUE: Digital bilateral breast tato (3D mammographic acquisition) in the CC and MLO projections. 2-D mediolateral oblique (MLO) and craniocaudad (CC) views of both breasts were obtained. CAD: Full Field Digital Mammography with Computer Added Detection was performed. COMPARISON: Comparison is made with prior study of August 05, 2022. FINDINGS: Breast Composition: There are scattered areas of fibroglandular density. There are no dominant masses or suspicious calcifications. Stable benign-appearing bilateral axillary lymph nodes. No other significant abnormalities are identified. There has been no significant change since the prior study. BI/SCRN MAMM (CAD)W/TATO BILAT IMPRESSION: Stable bilateral screening mammogram. Yearly follow-up mammogram recommended. (A) ASSESSMENT CATEGORY: BIRADS Category 2: Benign. A letter regarding these results will be sent to the patient by the facility within 30 days. Approximately 10% of breast cancers are not detected by mammography. A normal mammogram should not delay biopsy of a clinically suspicious abnormality. [id number] Electronically Signed: Aditya Vicente MD at 12:05 EDT ,
== END | disposition home or self-care (01) ==
LOC: OPBI 10:22
PROVIDERS: PCP Internal Medicine; Referring Provider Internal Medicine; Visit Provider Internal Medicine
DX: Z12.31 Encounter for screening mammogram for malignant neoplasm of breast (principal)
CPT/HCPCS: 77063; 77067

== ENCOUNTER → 2023-11-17 | Outpatient (CLI) | payer MEDICAID, SELFPAY ==
--- NOTE | 2023-11-17 12:52 | ECHOD_ITS ---
Reason For Study: Chest Pain Procedure This was a 2D Doppler, Color Flow transthoracic echocardiogram. Exam performed in department. Left Ventricle Normal LV size. Left ventricular systolic function is normal. The estimated ejection fraction is 60 %. Normal diastology for age. No regional wall motion abnormalities noted. Right Ventricle Normal RV size. Normal systolic function. Atria Normal left atrium. Normal right atrium. Mitral Valve Normal mitral valve. Tricuspid Valve Normal tricuspid valve. Mild (1+) tricuspid valve insufficiency. Pulmonary artery systolic pressure is 27 mmHg. Pulmonic Valve Normal pulmonic valve. Great Vessels Normal aortic root. The pulmonary artery is normal size. Normal inferior vena cava. Pericardium/Pleural No pericardial effusion. MMode/2D Measurements & Calculations LVIDd: 5.7 cm IVSd: 1.2 cm Ao root diam: 3.2 cm LVIDs: 3.6 cm LVPWd: 0.95 cm LA dimension: 4.5 cm RVDd: 4.8 cm FS: 36.7 % LAV(MOD-bp): 64.0 ml LVAd ap4: 37.1 cm2 SV(MOD-sp4): 84.9 ml LAV(MOD-bp) Indexed: 24.9 ml/m2 LVLd ap4: 8.2 cm LAV(MOD-sp2): 56.6 ml EDV(MOD-sp4): 144.1 ml LAV(MOD-sp4): 62.6 ml EDV(sp4-el): 142.7 ml LVAs ap4: 21.6 cm2 LVLs ap4: 6.7 cm ESV(MOD-sp4): 59.3 ml ESV(sp4-el): 59.5 ml EF(MOD-sp4): 58.9 % EF(sp4-el): 58.3 % SV(sp4-el): 83.2 ml LA A4 area: 21.7 cm2 RA A4 area: 18.6 cm2 TAPSE: 2.4 cm Time Measurements MV dec time: 0.16 sec Doppler Measurements & Calculations MV E max napoleon: 109.3 cm/sec Lat Peak E' Napoleon: 14.3 cm/sec Med Peak E' Napoleon: 14.1 cm/sec MV A max napoleon: 64.3 cm/sec E/E' lat: 7.7 E/E' med: 7.7 MV E/A: 1.7 MV V2 max: 132.6 cm/sec MV P1/2t max napoleon: 133.7 cm/sec Ao V2 max: 164.1 cm/sec MV max P.0 mmHg MV P1/2t: 54.8 msec Ao max P.8 mmHg MV V2 mean: 53.9 cm/sec MV dec slope: 713.9 cm/sec2 Ao V2 mean: 119.2 cm/sec MV mean P.6 mmHg Ao mean P.4 mmHg MV V2 VTI: 36.2 cm MVA(P1/2t): 4.0 cm2 Ao V2 VTI: 41.7 cm AV (velocity ratio): 0.76 LV V1 max: 127.7 cm/sec PA V2 max: 91.7 cm/sec TR max napoleon: 237.1 cm/sec LV V1 max P.5 mmHg TR max P.5 mmHg LV V1 mean P.8 mmHg LV V1 mean: 91.5 cm/sec LV V1 VTI: 31.5 cm ECHO/Echo Complete Interpretation Summary Normal LV size. Left ventricular systolic function is normal. The estimated ejection fraction is 60 %. Normal diastology for age. Structurally normal valves. Ordering Physician: Messi Pagan Referring Physician: Asaf Powers Performed By: Bernardo Avalos RCS
== END | disposition home or self-care (01) ==
LOC: CVS 12:50
PROVIDERS: PCP Internal Medicine; Referring Provider Internal Medicine Cardiovascular Disease; Visit Provider Internal Medicine Cardiovascular Disease
DX: R07.9 Chest pain, unspecified (principal)
CPT/HCPCS: 93306

== ENCOUNTER → 2024-03-02 | Outpatient (CLI) | payer MEDICAID, SELFPAY ==
[2024-03-02 12:18] LABS: Absolute Lymphocyte Count 1.83 X10^3/uL (0.83-4.51); Absolute Neutrophil Count 4.6 X10^3/uL (2.0-7.7); Basophil# 0.04 X10^3/uL; Basophil% 0.5 % (0-1); Eosinophil# 0.34 X10^3/uL; Eosinophils% 4.6 % (0-5); Hematocrit 42.9 % (37-47); Hemoglobin 13.3 g/dL (12.0-15.0); Lymphocyte # 1.83 X10^3/ul (0.83-4.51); Lymphocyte % 24.6 % (19-41); Mean Corpuscular Hgb 28.1 pg (27.0-32.0); Mean Corpuscular Volume 90.7 fL (81-99); Mean Platelet Vol. 11.9 fl (6.2-12.0); Monocyte# 0.54 X10^3/uL; Monocyte% 7.3 % (0-10); NRBC Flagged by Analyzer 0 % (0-5); Neutrophil # 4.64 X10^3/uL (2.7-7.7); Neutrophil % 62.5 % (47-70); Platelet Count 274 K/mm3 (150-450); RBC Distribution Width CV 12.9 % (11.6-14.6); RBC Distribution Width SD 42.7 fl (35.1-43.9); Red Blood Count 4.73 M/mm3 (4.2-5.4); White Blood Count 7.4 K/mm3 (4.4-11.0)
[2024-03-02 12:34] LABS: Vitamin B12 457 pg/mL (211-911); Vitamin D,25 Hydroxy 46.5 ng/mL
[2024-03-02 12:59] LABS: ALB/GLOB Ratio 0.9 RATIO (0.9-2.4); AST(SGOT) 13 U/L (15-37); Alanine Aminotransfer ALT/SGPT 18 U/L (13-56); Albumin, Serum 3.6 g/dL (3.2-5.0); Alkaline Phosphatase 50 U/L (45-117); Anion Gap 2 (5-15); BUN 14 mg/dL (7-18); BUN/Creat Ratio 13.9 RATIO (10-20); Calcium,Total 9.4 mg/dL (8.5-10.1); Chloride 106 mmol/L (98-107); Creatinine, Serum 1.01 mg/dL (0.55-1.02); EST Glomerular Filtration Rate 63 mL/min (>60); Est Glom Filt Rate - Afr Amer 76 mL/min (>60); Globulin 3.8 g/dL (2.2-4.2); Glucose 101 mg/dL (74-106); Potassium 4.6 mmol/L (3.5-5.1); Protein, Total 7.4 g/dL (6.4-8.2); Sodium Level 138 mmol/L (136-145); T4 Free Direct 1.14 ng/dL (0.76-1.46)
== END | disposition home or self-care (01) ==
LOC: BIMLAB 09:48
PROVIDERS: PCP Internal Medicine; Referring Provider Internal Medicine; Visit Provider Internal Medicine
DX: F41.9 Anxiety disorder, unspecified (principal); E11.9 Type 2 diabetes mellitus without complications; F32.A Depression, unspecified; R00.1 Bradycardia, unspecified
CPT/HCPCS: 36415; 80053; 82306; 82607; 84439; 84443; 85025

== ENCOUNTER → 2024-03-11 | Outpatient (CLI) | payer MEDICAID, SELFPAY | END | disposition home or self-care (01) | LOC: PSN 06:58 | PROVIDERS: PCP Internal Medicine; Referring Provider Physician Assistant Medical; Visit Provider Physician Assistant Medical | DX: R00.1 Bradycardia, unspecified (principal) | CPT/HCPCS: 93225; 93226 ==

== ENCOUNTER → 2024-08-31 | Outpatient (CLI) | payer MEDICAID, SELFPAY ==
[2024-08-31 13:14] LABS: Anion Gap 11 (5-15); BUN 17 mg/dL (4-19); Carbon Dioxide 25.1 mmol/L (21.0-32.0); Chloride 103 mmol/L (98-108); Cholesterol 210 mg/dL (<=200); Creatinine, Serum 0.89 mg/dL (0.70-1.20); EST Glomerular Filtration Rate 82 (>60); Glucose 89 mg/dL (70-99); High Density Lipoprotein 47 mg/dL; Low Density Lipoprotein Calc. 133 mg/dL; Sodium Level 140 mmol/L (133-145); Triglycerides 151 mg/dL; Very Low Density Lipoprotein 30 mg/dL (5-40); cholesterol:hdl ratio screen 4.49
[2024-08-31 13:18] LABS: Hemoglobin A1c 5.4 % (<=5.6)
== END | disposition home or self-care (01) ==
LOC: BIMLAB 10:40
PROVIDERS: PCP Internal Medicine; Referring Provider Internal Medicine; Visit Provider Internal Medicine
DX: E11.9 Type 2 diabetes mellitus without complications (principal)
CPT/HCPCS: 36415; 80048; 80061; 83036

== ENCOUNTER → 2024-09-14 | Outpatient (CLI) | payer MEDICAID, SELFPAY ==
--- NOTE | 2024-09-14 09:45 | BI_ITS ---
EXAM: SCRN MAMM (CAD)W/TATO BILAT 09/14/2024 CLINICAL HISTORY: F, Age 43 y/o , SCREEN FOR MAMMOGRAM TECHNIQUE: Bilateral screening digital breast tomosynthesis with 2D and 3D images. Computer aided detection. COMPARISON: Prior exam(s) dated 08/26/2023, 08/05/2022. FINDINGS: TISSUE DENSITY: The breast tissue is composed of scattered area of fibroglandular density. Bilateral Breast Mammographic Findings: No significant masses, calcifications or other abnormalities are identified. BI/SCRN MAMM (CAD)W/TATO BILAT IMPRESSION: Right Breast: BIRADS 1 NEGATIVE. Left Breast: BIRADS 1 NEGATIVE. OVERALL FINAL ASSESSMENT: BIRADS 1 NEGATIVE. RECOMMENDATION: Routine annual follow-up in 1 Year A letter with findings and recommendations will be mailed to the patient. Reading Location: [id number]
== END | disposition home or self-care (01) ==
LOC: OPBI 09:26
PROVIDERS: PCP Internal Medicine; Referring Provider Nurse Practitioner Family; Visit Provider Nurse Practitioner Family
DX: Z12.31 Encounter for screening mammogram for malignant neoplasm of breast (principal)
CPT/HCPCS: 77063; 77067

== ENCOUNTER → 2024-09-20 | Outpatient (CLI) | payer MEDICAID, SELFPAY | END | disposition home or self-care (01) | LOC: LABSPEC 16:37 | PROVIDERS: PCP Internal Medicine; Referring Provider Nurse Practitioner Family; Visit Provider Nurse Practitioner Family | DX: Z20.2 Contact with and (suspected) exposure to infections with a predominantly sexual mode of transmission (principal) | CPT/HCPCS: 87070; 87205; 87491; 87591 ==

== ENCOUNTER → 2024-09-29 | Outpatient (CLI) | payer MEDICAID, SELFPAY ==
--- NOTE | 2024-09-29 11:26 | RAD_ITS ---
PROCEDURE: CHEST PA AND LATERAL 09/29/2024 REASON FOR EXAM: COUGH, SOB X 1 DAY TECHNIQUE: Frontal and lateral views of the chest. COMPARISON: None FINDINGS: Hardware: None Heart: The heart size is normal. Mediastinum: The mediastinal contour is unremarkable. Lungs: The lungs are clear. Bones: The bones are unremarkable. RAD/Chest PA and Lateral IMPRESSION: NO ACUTE FINDINGS. Reading Location: [id number]
== END | disposition home or self-care (01) ==
LOC: MTRAD 11:25
PROVIDERS: PCP Internal Medicine; Referring Provider Physician Assistant Surgical; Visit Provider Physician Assistant Surgical
DX: R06.02 Shortness of breath (principal)
CPT/HCPCS: 71046

== ENCOUNTER 2024-10-26 16:00 | Outpatient (RCR) | payer MEDICAID, SELFPAY ==
--- NOTE | 2024-09-21 18:02 | HP.PTEVAL_ITS ---
Patient's Visit Information Visit Information Visit Information: FRANCY LAZO is a 43 year old F referred to Physical Therapy by Dr. Conrado Simental DO with a diagnosis of BILATERAL PRIMARY OSTEOARTHRITIS. Date of Evaluation: 09/21/24 Physical Therapist: Chito George, PT, Cert MDT, OCS Visit Plan Frequency: 2x /Week Duration: 4 Weeks Plan: PT INTERVENTIONS ROM KNEE ,QUADS/HAMS/HIP STRENGTHENING BLE ,FUNCTIONAL STRENGTHENING AND BIKE /NUSTEP Subjective Subjective: This 43 y/o female presents to physical therapy with bilateral knee pain with OA. Patient has had knee pain for ~ 3 years . Patient pain is worse left knee vs right . Patient meloxicam. Discussed with patient options steroid injection, viscosupplementation. Patient is possible candidate but with exhaust all options. Patient had x-rays left mod/severe DJD ,and right mild/mod . Patient located left pain located lateral knee ,right posterior knee. Aggravating stairs ,squatting ,unable kneeling. Alleviating factors medication. Denies paresthesia/tingling-. Sleeping okay. Patient affects ability with pain taking care children ,and can affects houseworks and twisting motion. Goals to avoid surgery or strengthening SOCAIL: single 2 young children VOCATION: [employer] Objective Objective: POSTURE: mild forward posture ,knee valgus NEURO: denies paresthesia/tingling PALPATION:mild tender medial /lateral knee GAIT: reciprocal pattern AROM: supine knee flexion left 5-105 degrees ,right knee 5-110 degrees pain with OP ea STAIRS: one step at a time MMT: ( peak force) quads right 29.9 left 26.9 ,hamstrings right 25.6 ,left 24.1 ,hip flexion right 31.8 ,left 30.9 ,hip abd left23.9 ,right 24.1 FLEXABILITY: mild tight Special Tests R Knee Valgus - MCL: Negative R Knee Varus - LCL: Negative R Knee Patellar Apprehension - PFS: Negative R Knee Patellar Grind - PFS: Negative L Knee Valgus - MCL: Negative L Knee Varus - LCL: Negative L Knee Patellar Apprehension - PFS: Negative L Knee Patellar Grind - PFS: Negative Balance/Special Test Scores Lower Extremity Functional Score: 35 Goals Goal 1:: Patient to be I with [facility] for ROM and strength of knees Goal Time Frame: 4-6 Weeks Goal 2:: Patient to improve AROM supine knee flexion by 5-10 degrees to improve stairs Goal Time Frame: 4-6 Weeks Goal 3:: Patient to improve peak force quads/hamstrings/hip by 5-10# of strength to improve function Goal Time Frame: 4-6 Weeks Goal 4:: Patient to improve LFES score by 5 points to improve QOL and function Goal Time Frame: 4-6 Weeks Goal 5:: Patient to demonstrate 50% improvement with less pain and improved function Goal Time Frame: 4-6 Weeks Rehabilitation Potential Physical Therapy Diagnosis: This has bilateral DJD left > right with pain with ROM , decrease strength impairs gait and stairs thus benefit from skilled PT Rehabilitation Potential: Good Anticipated Interventions Patient/Client Instruction: Educate patient on: Condition and Plan of Care For the Purpose of:: To decrease pain, To increase ROM, To improve muscle performance and motor function, To improve ability to perform ADL's, To increase tolerance to activity/condition/position, To improve ability of physical actions for home/community/work/leisure, To improve health of tissue, To decrease soft tissue restriction, To increase flexibility/ROM, To improve endurance, To prevent re-injury and To improve tolerance to ADL's Therapeutic Exercise to Include: Strength training, Endurance training, Postural training, Flexibilty training, Passive ROM and Active ROM For the Purpose of:: To decrease pain, To increase ROM, To improve muscle performance and motor function, To improve ability to perform ADL's, To increase tolerance to activity/condition/position, To decrease level of supervision to perform tasks, To improve health of tissue, To decrease soft tissue restriction and To increase flexibility/ROM TENS: Yes IF ES: Yes Cryotherapy (ice pack, ice massage): Yes Thermo therapy (hot pack): Yes Ultrasound (thermal/non thermal): Yes For the Purpose of:: To decrease pain, To increase ROM, To improve health of tissue, To decrease soft tissue restriction and To increase flexibility/ROM Text: Thank you for the opportunity to evaluate your patient. For Medicare and Medicare HMO plans, please review the plan of care and approve it. It will need to be FAXED BACK to us at [phone] for Medicare purposes. For Medicare only, by signing this I certify the plan of care. Please let me know if there are questions or concerns regarding this plan of care. Physician Signature: Date:
--- NOTE | 2025-02-13 17:47 | HP.PTDCSUM ---
Discharge Summary D/C summary: It has been my pleasure to treat FRANCY LAZO referred by Dr. Conrado Simental DO, with the diagnosis of BILATERAL PRIMARY OSTEOARTHRITIS for a total of 4 visit(s). Discharge Date: Please see the following information for a summary of their discharge status. Subjective Subjective: PT is helping ,less pain along less medication Knee has not giving out like daily prior to PT Pain Left knee: Pain Intensity (Out of 10): 2 right: Pain Intensity (Out of 10): 0 Overall Improvement % Improvement: 70 Objective Objective/Function: POSTURE: mild forward posture ,knee valgus NEURO: denies paresthesia/tingling PALPATION:mild tender medial /lateral knee GAIT: reciprocal pattern AROM: supine knee flexion left 5-110 degrees ,right knee 5-115 degrees pain with OP ea STAIRS: one step at a time MMT: ( peak force) quads right 48.0 left 43.6 ,hamstrings right 40.6 ,left 31.9,hip flexion right 31.8 ,left 30.9 ,hip abd left 31.9 ,right 34..1 FLEXABILITY: mild tight Goals Goal 1:: Patient to be I with HEP for ROM and strength of knees Goal Progress: Progressing Goal 2:: Patient to improve AROM supine knee flexion by 5-10 degrees to improve stairs Goal Progress: Progressing Goal 3:: Patient to improve peak force quads/hamstrings/hip by 5-10# of strength to improve function( NEW GOAL) Goal 4:: Patient to improve LFES score by 5 points to improve QOL and function Goal 5:: Patient to demonstrate 75% improvement with less pain and improved function ( NEW GOAL) Plan Plan: d/c D/C Information d/c sentence: If there are questions or concerns regarding this patient's physical therapy, please feel free to call me at [phone]. Thank you for the referral of this patient. Sincerely, Chito George, PT, Cert MDT, OCS Balance/Gait/Functional tests Balance/Special Test Scores Lower Extremity Functional Score: 35 Improvement % Improvement: 70
== END 2024-10-26 19:00 | disposition home or self-care (01) ==
LOC: PT 16:00
PROVIDERS: PCP Internal Medicine; Referring Provider Orthopaedic Surgery; Visit Provider Orthopaedic Surgery
DX: M17.0 Bilateral primary osteoarthritis of knee (principal)
CPT/HCPCS: 97110; 97162; 97530

== ENCOUNTER → 2025-03-10 | Outpatient (CLI) | payer MEDICAID, SELFPAY ==
[2025-03-13 20:08] LABS: Chlamydia By Nucleic Acid AMP Negative (Negative); Gonococcus By Nucleic Acid AMP Negative (Negative)
[2025-03-16 16:09] LABS: HPV APTIMA, High Risk Negative (Negative)
== END | disposition home or self-care (01) ==
LOC: LABSPEC 11:55
PROVIDERS: PCP Internal Medicine; Visit Provider Advanced Practice Midwife
DX: N89.8 Other specified noninflammatory disorders of vagina (principal); Z12.4 Encounter for screening for malignant neoplasm of cervix
CPT/HCPCS: 87070; 87205; 87491; 87591; 87624; 88175; G0145